=== PATIENT | female | born 1980 | race Hispanic/Latino ===

== ENCOUNTER 2017-02-17 08:04 | Emergency (ER) | payer OTHER, SELFPAY ==
--- NOTE | 2017-02-17 10:09 | RAD ---
TWO VIEW CHEST: History: Cough. Comparison: 05-18-08 FINDINGS: The lungs are clear of infiltrate. Heart and mediastinum appear unremarkable. IMPRESSION: No acute abnormality identified. POS: [facility]
[2017-02-17] MEDS ORDERED: Ibuprofen 800 MG TAB ONE (10:34)
[2017-02-17] MEDS ORDERED: Dexamethasone 4 mg/ml Vial ONE (10:34)
== END 2017-02-17 10:32 | disposition home or self-care (01) ==
LOC: ERS 08:04
DX: J20.9 Acute bronchitis, unspecified (principal)
CPT/HCPCS: 71020; 96372; J1100

== ENCOUNTER 2018-05-12 05:53 | Emergency (ER) | payer OTHER, SELFPAY ==
[2018-05-12] MEDS ORDERED: Azithromycin 250 MG TAB ONE (06:50)
[2018-05-12] MEDS ORDERED: predniSONE 20 MG TAB ONE (06:50)
[2018-05-12] MEDS ORDERED: Acetaminophen 500 MG TAB ONE (06:52)
--- NOTE | 2018-05-12 07:53 | RAD ---
CHEST 2 VIEWS: HISTORY: Cough and congestion. COMPARISON: Radiograph in 2017. FINDINGS: Lungs are clear. No pneumothorax or effusion. Cardiac silhouette and mediastinal contours are withi n normal limits. IMPRESSION: No acute intrathoracic abnormality. POS: [facility]
== END 2018-05-12 06:53 | disposition home or self-care (01) ==
LOC: ERS 05:53
DX: J20.9 Acute bronchitis, unspecified (principal)
CPT/HCPCS: 71046

== ENCOUNTER 2018-06-11 19:36 | Emergency (ER) | payer SELFPAY ==
[2018-06-11 20:03] LABS: #Lymphocytes 2.2 thou/uL (1.20-3.40); #Monocytes 0.7 thou/uL (0.11-0.59); #Neutrophils 5.1 thou/uL (1.40-6.50); %Basophils 0.4 % (0.0-1.0); %Eosinophils 0.5 % (0.0-10.0); %Lymphocytes 27.3 % (21.0-51.0); %Monocytes 8.6 % (0.0-10.0); %Neutrophils 63.2 % (42.0-75.0); Hemoglobin 12.3 g/dL (12.0-16.0); Mean Corpuscular HGB CONC 33.6 g/dL (32.0-36.0); Mean Corpuscular Hemoglobin 26.6 pg (27.0-31.0); Mean Corpuscular Volume 79.2 fL (78.0-98.0); Mean Platelet Volume 8.5 fL (7.4-10.4); Platelet Count 203 thou/uL (130-400); RBC Distribution Width 14.2 % (11.5-14.5); Red Blood Cell (RBC) Count 4.65 mill/uL (4.20-5.40)
[2018-06-11 20:16] LABS: BHCG - Serum Negative (NEGATIVE); Pregs Control Background? CLEAR/WHITE (CLR/WHITE); Pregs Control Bar Appear? YES (CONTROL BAR)
[2018-06-11 20:22] LABS: ALT (SGPT) 15 U/L (8-55); AST (SGOT) 16 U/L (5-34); Albumin 3.5 g/dL (3.5-5.0); Alkaline Phosphatase 96 U/L (40-150); Anion Gap 8 mmol/L (10-20); BUN (Urea Nitrogen) 13 mg/dL (7.0-18.7); Bilirubin, Total 0.2 mg/dL (0.2-1.2); Calc. Creatinine Clearance 0 mL/min (70-130); Calcium 8.7 mg/dL (7.8-10.44); Carbon Dioxide 26 mmol/L (22-29); Chloride 105 mmol/L (98-107); Estimated GFR-MDRD 85; Glucose 112 mg/dL (70-105); Lipase 37 U/L (8-78); Potassium 3.9 mmol/L (3.5-5.1); Protein, Total 7.5 g/dL (6.0-8.3); Sodium 135 mmol/L (136-145)
[2018-06-11 20:57] LABS: Bilirubin Negative (Negative); Blood, Urine Negative (Negative); Clarity CLEAR (Clear); Glucose, Urine (Dipstick) Negative (Negative); Leukocyte Negative (Negative); Nitrite Negative (Negative); Protein, Urine (Dipstick) Negative (Neg-Trace); Specific Gravity, Urine 1.026 (1.002-1.036)
--- NOTE | 2018-06-12 09:32 | CT ---
CT OF ABDOMEN AND PELVIS 06/11/18 COMPARISON: None. HISTORY: Right sided flank pain. TECHNIQUE: Axial CT imaging obtained at 5 mm intervals from lung bases through pubic symphysis without contrast. Coronal reformatted imaging obtained. FINDINGS: The lack of contrast media limits assessment of the viscera, bowel, vascular structures and for lymph adenopathy. The imaged lung bases are unremarkable. There is no free intraperitoneal or fluid seen. The liver, gallbladder, spleen, pancreas, and adrenal glands demonstrate no acute findings. There is no evidence for nephrolithiasis or obstructive uropathy. There is no calcification seen along the cou rse of either ureter. Limited assessment of the bowel demonstrates no evidence for bowel inflammatory change or bowel obstr uction. The appendix is unremarkable. The osseous structures demonstrate no worrisome lytic or blastic lesions. IMPRESSION: No evidence for nephrolithiasis or obstructive uropathy. POS: [facility]
== END 2018-06-11 21:50 | disposition home or self-care (01) ==
LOC: ERS 19:36
DX: K64.9 Unspecified hemorrhoids (principal)
CPT/HCPCS: 36415; 74176; 80053; 81003; 83690; 84703; 85025